=== PATIENT | male | born 1970 | race Caucasian/White ===

== ENCOUNTER 2017-07-23 11:49 | Emergency (ER) | payer SELFPAY ==
[~2017-07-23] VITALS: Ht 152.4 cm; Wt 75.0 kg
[2017-07-23 11:53] VITALS: BP 143/83; PULSE 83; RESP 16; TEMP 98.6; O2SAT 98
[2017-07-23] MEDS ORDERED: SODIUM CHLOR 0.9% 1000 ML INJ 1,000 ML IV SCH (12:27)
[2017-07-23] MEDS ORDERED: ONDANSETRON HCL 4 MG/2 ML VIAL IVP ONE (12:30)
[2017-07-23] MEDS ORDERED: SODIUM CHLORIDE 0.9% FLUSH 10 ML FLUSH IV FLUSH PRN (12:30)
[2017-07-23 12:52] VITALS: O2SAT 97
[2017-07-23 12:56] LABS: AUTOMATED NEUTROPHIL # 3.7 TH/MM3 (1.8-7.7); BASOPHIL % 0.6 % (0.0-2.0); EOSINOPHIL % 0.6 % (0.0-4.0); HEMOGLOBIN 16.1 GM/DL (13.0-17.0); LYMPH % 29.8 % (9.0-44.0); LYMPHOCYTE # 1.7 TH/MM3 (1.0-4.8); MEAN CELL VOLUME 89.5 FL (80.0-100.0); MEAN CORPUSCULAR HEMOGLOBIN 32.7 PG (27.0-34.0); MEAN PLATELET VOLUME 8.1 FL (7.0-11.0); MONO % 5.3 % (0.0-8.0); MONOCYTE # 0.3 TH/MM3 (0-0.9); NEUT % 63.7 % (16.0-70.0); PLATELET COUNT 256 TH/MM3 (150-450); RED BLOOD COUNT 4.92 MIL/MM3 (4.50-5.90); RED CELL DISTRIBUTION WIDTH 12.3 % (11.6-17.2); WHITE BLOOD COUNT 5.8 TH/MM3 (4.0-11.0)
[2017-07-23 13:00] LABS: MEAN CORPUSCULAR HGB CONC 36.6 % (32.0-36.0)
[2017-07-23 13:23] LABS: ALKALINE PHOSPHATASE 113 U/L (45-117); TOTAL BILIRUBIN ADULT 0.4 MG/DL (0.2-1.0); TOTAL PROTEIN 7.7 GM/DL (6.4-8.2)
[2017-07-23 13:31] LABS: ALBUMIN 3.6 GM/DL (3.4-5.0); ALT (GPT) 44 U/L (12-78); AST (GOT) 34 U/L (15-37); BICARBONATE 27.3 MEQ/L (21.0-32.0); BLOOD UREA NITROGEN 14 MG/DL (7-18); CALCIUM 8.5 MG/DL (8.5-10.1); CHLORIDE 103 MEQ/L (98-107); CREATININE 0.86 MG/DL (0.60-1.30); GLOMERULAR FILTRATION RATE 96 ML/MIN (>89); GLUCOSE,RANDOM 183 MG/DL (74-106); SODIUM (NA) 136 MEQ/L (136-145)
[2017-07-23] MEDS ORDERED: CETI10CA3 PO (13:45)
--- NOTE | 2017-07-23 13:46 | PD ---
HPI Chief Complaint: Medical Clearance Time Seen by Provider: 12:04 Travel History International Travel<30 days: No Contact w/Intl Traveler<30days: No Traveled to known affect area: No History of Present Illness HPI 47-year-old male complains of a vague sense of his blood being "bad." The patient also complains of nasal congestion. He of note speaks [place] and all line translation services were provided. Duration of the nasal congestion has been about 3-4 days. The sensation of the blood being "bad" was more difficult for the patient to specify in detail. He's had no chest pain or shortness of breath or nausea vomiting or fever. He reports that after drinking soft drinks the blood symptoms worsen. [facility] Social History Alcohol Use: No Tobacco Use: No Substance Use: No Allergies-Medications (Allergen,Severity, Reaction): Coded Allergies: No Known Allergies (Verified , 02/23/14) Reported Meds & Prescriptions Reported Meds & Active Scripts Active Zyrtec (Cetirizine HCl) 10 Mg Capsule 1 Tab PO HS 30 Days Review of Systems Except as stated in HPI: all other systems reviewed are Neg General / Constitutional: No: Fever Physical Exam Narrative GENERAL: Pleasant 47-year-old male nourished well-developed SKIN: Warm and dry. HEAD: Atraumatic. Normocephalic. EYES: Pupils equal and round. No scleral icterus. No injection or drainage. ENT: No nasal bleeding or discharge. Mucous membranes pink and moist. NECK: Trachea midline. No JVD. CARDIOVASCULAR: Regular rate and rhythm. RESPIRATORY: No accessory muscle use. Clear to auscultation. Breath sounds equal bilaterally. GASTROINTESTINAL: Abdomen soft, non-tender, nondistended. Hepatic and splenic margins not palpable. MUSCULOSKELETAL: Extremities without clubbing, cyanosis, or edema. No obvious deformities. NEUROLOGICAL: Awake and alert. No obvious cranial nerve deficits. Motor grossly within normal limits. Five out of 5 muscle strength in the arms and legs. Normal speech. PSYCHIATRIC: Appropriate mood and affect; insight and judgment normal. Data Data Last Documented VS Vital Signs Date Time Temp Pulse Resp B/P (MAP) Pulse Ox O2 Delivery O2 Flow Rate FiO2 07/23/17 12:52 97 Nasal Cannula 2.00 07/23/17 11:53 98.6 83 16 Vital Signs Date Time Temp Pulse Resp B/P (MAP) Pulse Ox O2 Delivery O2 Flow Rate FiO2 07/23/17 12:52 97 Nasal Cannula 2.00 07/23/17 11:53 98.6 83 16 143/83 (103) 98 Room Air Orders Orders Complete Blood Count With Diff (07/23/17 12:27) Comprehensive Metabolic Panel (07/23/17 12:27) Iv Access Insert/Monitor (07/23/17 12:27) Ecg Monitoring (07/23/17 12:27) Oximetry (07/23/17 12:27) Ondansetron Inj (Zofran Inj) (07/23/17 12:30) Sodium Chlor 0.9% 1000 Ml Inj (Ns 1000 M (07/23/17 12:27) Sodium Chloride 0.9% Flush (Ns Flush) (07/23/17 12:30) Ed Discharge Order (07/23/17 13:46) Labs Laboratory Tests Test 07/23/17 12:40 White Blood Count 5.8 TH/MM3 Red Blood Count 4.92 MIL/MM3 Hemoglobin 16.1 GM/DL Hematocrit 44.0 % Mean Corpuscular Volume 89.5 FL Mean Corpuscular Hemoglobin 32.7 PG Mean Corpuscular Hemoglobin Concent 36.6 % Red Cell Distribution Width 12.3 % Platelet Count 256 TH/MM3 Mean Platelet Volume 8.1 FL Neutrophils (%) (Auto) 63.7 % Lymphocytes (%) (Auto) 29.8 % Monocytes (%) (Auto) 5.3 % Eosinophils (%) (Auto) 0.6 % Basophils (%) (Auto) 0.6 % Neutrophils # (Auto) 3.7 TH/MM3 Lymphocytes # (Auto) 1.7 TH/MM3 Monocytes # (Auto) 0.3 TH/MM3 Eosinophils # (Auto) 0.0 TH/MM3 Basophils # (Auto) 0.0 TH/MM3 CBC Comment AUTO DIFF Differential Comment AUTO DIFF CONFIRMED Blood Urea Nitrogen 14 MG/DL Creatinine 0.86 MG/DL Random Glucose 183 MG/DL Total Protein 7.7 GM/DL Albumin 3.6 GM/DL Calcium Level 8.5 MG/DL Alkaline Phosphatase 113 U/L Aspartate Amino Transf (AST/SGOT) 34 U/L Alanine Aminotransferase (ALT/SGPT) 44 U/L Total Bilirubin 0.4 MG/DL Sodium Level 136 MEQ/L Potassium Level 4.0 MEQ/L Chloride Level 103 MEQ/L Carbon Dioxide Level 27.3 MEQ/L Anion Gap 6 MEQ/L Estimat Glomerular Filtration Rate 96 ML/MIN MDM Medical Decision Making Medical Screen Exam Complete: Yes Emergency Medical Condition: Yes Differential Diagnosis Diabetes, postnasal drip, a metabolic disarray, anemia Narrative Course CBC & BMP Diagram 07/23/17 12:40 Total Protein 7.7, Albumin 3.6, Calcium Level 8.5, Alkaline Phosphatase 113, Aspartate Amino Transf (AST/SGOT) 34, Alanine Aminotransferase (ALT/SGPT) 44, Total Bilirubin 0.4 Patient will need ongoing follow-up for potential diabetes diagnosis. Patient verbalized understanding. Translation provided by computer. It was again offered at the time of reassessment prior to discharge however patient preferred not to use it. Diagnosis Primary Impression: Nasal congestion Additional Impression: Hyperglycemia Referrals: [facility] call for appointment Patient Assistance Program call for appointment Med/Other Pt SpecificInfo: Prescription(s) given Scripts Cetirizine HCl (Zyrtec) 10 Mg Capsule 1 TAB PO HS for 30 Days Prov: Roberto Harris MD 07/23/17 Disposition: 01 DISCHARGE HOME Condition: Stable Roberto Harris MD Jul 23, 2017 13:45
== END 2017-07-23 14:00 | disposition home or self-care (01) ==
LOC: NEPD 11:49
DX: R09.81 Nasal congestion (principal); R73.9 Hyperglycemia, unspecified
CPT/HCPCS: 80053; 85025; 96361; 96374; 99284; J2405; J7030